=== PATIENT | female | born 1990 | race African-American/Black ===

== ENCOUNTER 2016-09-21 15:32 | Emergency (ER) | payer OTHER ==
[~2016-09-21] VITALS: Ht 157.5 cm; Wt 74.8 kg
[~2016-09-21 15:32] MED LIST: APAP500 PO; BACTRIM DS TAB1 EACH PO; CLARITIN10 M2 PO; DELSYM COUGH+C180 M1 PO; FLAGYL500 MG PO; FLEXERIL; FLEXERIL PO; HYDROCODON-ACE1 EAC7; HYDROCODONE-AP1 EAC6 PO; IBUPROFEN 200200 M1 PO; IBUPROFEN 600600 M1; IBUPROFEN 600600 M1 PO; IBUPROFEN 800800 M1; IBUPROFEN 800800 M1 PO; IBUPROFEN 800800 MG PO; MELOXICAM7.5 MG PO; MOBIC15 MG; MOBIC7.5 MG PO; NAPROSYN500 M1 PO; NORCO 5-325 TA1 EACH PO; NORFLEX100 MG PO; ONDANSETRON ODT4 MG PO; PENICILLIN V P500 MG PO; PENICILLIN VK500 M1 PO; PENICILLIN VK500 MG PO; PROCTOFOAM-HC 110 GM RC; REGLAN 10 MG TA10 MG PO; ROBAXIN 750 MG750 M1 PO; SUPHEDRIN30 MG PO; TESSALON PERLE100 MG PO
[2016-09-21 15:41] VITALS: BP 177/103
[2016-09-21] MEDS ORDERED: PENICILLIN V P500 MG PO (15:49)
[2016-09-21] MEDS ORDERED: IBUPROFEN 800800 M1 PO (15:49)
== END 2016-09-21 16:30 | disposition home or self-care (01) ==
LOC: ER 15:32
DX: K02.9 Dental caries, unspecified (principal); K04.01 Reversible pulpitis; Z88.6 Allergy status to analgesic agent; Z87.891 Personal history of nicotine dependence

== ENCOUNTER 2017-02-23 12:06 | Emergency (ER) | payer OTHER ==
[~2017-02-23] VITALS: Ht 157.5 cm; Wt 68.0 kg
[2017-02-23] MEDS ORDERED: MOBIC15 MG PO (12:21)
[2017-02-23] MEDS ORDERED: NORFLEX100 MG PO (12:21)
== END 2017-02-23 14:41 | disposition home or self-care (01) ==
LOC: ER 12:06
DX: S39.012A Strain of muscle, fascia and tendon of lower back, initial encounter (principal); Z87.891 Personal history of nicotine dependence; Z88.6 Allergy status to analgesic agent; X50.1XXA Overexertion from prolonged static or awkward postures, initial encounter; Y93.89 Activity, other specified; Y92.89 Other specified places as the place of occurrence of the external cause; Y99.8 Other external cause status

== ENCOUNTER 2017-10-02 21:32 | Emergency (ER) | payer OTHER ==
[~2017-10-02] VITALS: Ht 157.5 cm; Wt 70.3 kg
[~2017-10-02 21:32] MED LIST changes: +MOBIC15 MG PO
[2017-10-02 21:52] LABS: URINE BILIRUBIN NEGATIVE (Negative); URINE BLOOD 3+ (Negative); URINE CLARITY CLEAR; URINE COLOR YELLOW; URINE GLUCOSE-RANDOM* NEGATIVE (Negative); URINE KETONES NEGATIVE (Negative); URINE LEUKOCYTES-REFLEX 2+ (Negative); URINE NITRITE-REFLEX NEGATIVE (Negative); URINE PROTEIN (DIPSTICK) NEGATIVE (Negative); URINE UROBILINOGEN 0.2 E.U./dl (0.2-1.0)
[2017-10-02 22:30] VITALS: BP 148/94
[2017-10-02] MEDS ORDERED: NORCO 5-325 TA1 EACH PO (22:37)
[2017-10-02] MEDS ORDERED: KEFLEX500 M1 PO (22:37)
[2017-10-02] MEDS ORDERED: FLEXERIL PO (22:40)
[2017-10-02 22:45] LABS: CASTS None Seen /LPF (None Seen); CRYSTALS None Seen /LPF (None Seen); SQUAMOUS 4-10 Moderate /LPF (0-3); URINE RBC 3-10 Few /HPF (0-2); URINE WBC-REFLEX 6-15 Few /HPF (0-5)
== END 2017-10-02 22:45 | disposition home or self-care (01) ==
LOC: ER 21:32
PROVIDERS: Emergency Medicine
DX: M54.5 Low back pain (principal); N39.0 Urinary tract infection, site not specified; Z87.891 Personal history of nicotine dependence

== ENCOUNTER 2018-10-18 00:52 | Emergency (ER) | payer OTHER ==
[~2018-10-18] VITALS: Ht 157.5 cm; Wt 72.6 kg
[~2018-10-18 00:52] MED LIST changes: +KEFLEX500 M1 PO
[2018-10-18 00:55] VITALS: BP 146/92
[2018-10-18] MEDS ORDERED: MOBIC15 MG PO (01:52)
== END 2018-10-18 02:05 | disposition home or self-care (01) ==
LOC: ER 00:52
DX: S80.02XA Contusion of left knee, initial encounter (principal); S80.12XA Contusion of left lower leg, initial encounter; Z87.891 Personal history of nicotine dependence; Z88.6 Allergy status to analgesic agent; Z98.890 Other specified postprocedural states; W10.9XXA Fall (on) (from) unspecified stairs and steps, initial encounter; Y93.89 Activity, other specified; Y92.89 Other specified places as the place of occurrence of the external cause; Y99.8 Other external cause status

== ENCOUNTER 2020-05-30 23:07 | Emergency (ER) | payer OTHER ==
[~2020-05-30] VITALS: Ht 157.5 cm; Wt 68.0 kg
[2020-05-30] MEDS ORDERED: ONDANSETRON HCL4 M2 PO (23:12)
[2020-05-30] MEDS ORDERED: CARAFATE 1 GM TA1 G1 PO (23:12)
[2020-05-30] MEDS ORDERED: BENTYL 10 MG CA10 M1 PO (23:12)
[2020-05-30 23:36] LABS: ABSOLUTE NEUTROPHILS 10.1 thou/uL (1.4-8.2); BASOPHILS 0.3 % (0.0-2.0); HEMATOCRIT 45.2 % (37.0-47.0); HEMOGLOBIN 15.1 gm/dL (12.0-15.0); LYMPHOCYTES 9.4 % (24.0-44.0); MCHC 33.4 g/dL (28.0-37.0); MCV 92.9 fL (80.0-100.0); MONOCYTES 2.5 % (1.0-8.0); PLATELET COUNT 511 thou/uL (150-400); POLYS 87.8 % (36.0-66.0); RBC 4.87 mil/uL (4.20-5.00); WBC 11.5 thou/uL (4.0-11.0)
[2020-05-30 23:42] LABS: ANION GAP 15 mmol/L (7-16); BUN 20 mg/dL (7-18); CALCIUM 10.5 mg/dL (8.5-10.1); CHLORIDE 101 mmol/L (98-107); CO2 25 mmol/L (21-32); CREATININE 1.7 mg/dL (0.6-1.0); GLUCOSE 124 mg/dL (74-106); POTASSIUM 3.9 mmol/L (3.5-5.1); SODIUM 141 mmol/L (136-145)
[2020-05-30 23:47] LABS: ALBUMIN 4.7 g/dL (3.4-5.0); DIRECT BILIRUBIN < 0.1 mg/dL (<0.1-0.2); SGOT 25 U/L (15-37); SGPT 42 U/L (14-59); TOTAL BILIRUBIN 0.4 mg/dL (0.2-1.0); TOTAL PROTEIN 9.3 g/dL (6.4-8.2)
[2020-05-31 01:26] LABS: URINE BILIRUBIN 2+ (Negative); URINE BLOOD 1+ (Negative); URINE CLARITY SL CLOUDY; URINE COLOR YELLOW; URINE GLUCOSE-RANDOM* NEGATIVE (Negative); URINE KETONES NEGATIVE (Negative); URINE LEUKOCYTES-REFLEX NEGATIVE (Negative); URINE NITRITE-REFLEX NEGATIVE (Negative); URINE PROTEIN (DIPSTICK) 3+ (Negative); URINE SPECIFIC GRAVITY >= 1.030 (1.005-1.035); URINE UROBILINOGEN 0.2 E.U./dl (0.2-1.0)
[2020-05-31 01:51] LABS: BACTERIA-REFLEX 1-9 Few /HPF (None Seen); CRYSTALS None Seen /LPF (None Seen); HYALINE CASTS >10 Many /LPF (None Seen); MUCUS >6 Heavy strn/LPF (None Seen); SQUAMOUS 4-10 Moderate /LPF (0-3); URINE RBC 3-10 Few /HPF (0-2); URINE WBC-REFLEX 0-5 Rare /HPF (0-5)
[2020-05-31] MEDS ORDERED: FLAGYL500 M1 PO (03:14)
[2020-05-31] MEDS ORDERED: CIPROFLOXACIN500 M1 PO (03:14)
[2020-05-31] MEDS ORDERED: MOBIC15 MG PO (03:14)
[2020-05-31 03:29] VITALS: BP 136/75
== END 2020-05-31 03:38 | disposition home or self-care (01) ==
LOC: ER 23:07
PROVIDERS: Emergency Medicine
DX: K52.9 Noninfective gastroenteritis and colitis, unspecified (principal); E87.2 Acidosis; M79.604 Pain in right leg; M79.605 Pain in left leg; R11.2 Nausea with vomiting, unspecified; R07.89 Other chest pain; R43.8 Other disturbances of smell and taste; M54.9 Dorsalgia, unspecified; Z98.890 Other specified postprocedural states; Z79.899 Other long term (current) drug therapy; Z87.891 Personal history of nicotine dependence

== ENCOUNTER 2020-08-10 03:50 | Emergency (ER) | payer OTHER ==
[~2020-08-10] VITALS: Ht 157.5 cm; Wt 72.4 kg
[~2020-08-10 03:50] MED LIST changes: +BENTYL 10 MG CA10 M1 PO; +CARAFATE 1 GM TA1 G1 PO; +CIPROFLOXACIN500 M1 PO; +FLAGYL500 M1 PO; +ONDANSETRON HCL4 M2 PO
[2020-08-10] MEDS ORDERED: HYDROCODON-ACE1 EAC7 PO (04:00)
[2020-08-10 04:34] LABS: ANION GAP 12 mmol/L (7-16); BUN 12 mg/dL (7-18); CALCIUM 8.9 mg/dL (8.5-10.1); CHLORIDE 101 mmol/L (98-107); CO2 24 mmol/L (21-32); CREATININE 0.8 mg/dL (0.6-1.0); GLUCOSE 124 mg/dL (74-106); POTASSIUM 3.3 mmol/L (3.5-5.1); SODIUM 137 mmol/L (136-145)
[2020-08-10 04:41] LABS: BASOPHILS 0.6 % (0.0-2.0); EOSINOPHILS 2.7 % (0.0-3.0); HEMATOCRIT 38.7 % (37.0-47.0); HEMOGLOBIN 12.9 gm/dL (12.0-15.0); LYMPHOCYTES 42.1 % (24.0-44.0); MCH 31.2 pg (26.0-34.0); MCHC 33.3 g/dL (28.0-37.0); MCV 93.4 fL (80.0-100.0); MONOCYTES 9.3 % (1.0-8.0); PLATELET COUNT 287 thou/uL (150-400); POLYS 45.3 % (36.0-66.0); RBC 4.14 mil/uL (4.20-5.00); RDW 14.9 % (10.5-14.5); WBC 6.6 thou/uL (4.0-11.0)
[2020-08-10 04:45] LABS: ALBUMIN 3.8 g/dL (3.4-5.0); DIRECT BILIRUBIN 0.1 mg/dL (<0.1-0.2); LIPASE 64 U/L (73-393); SGOT 9 U/L (15-37); SGPT 15 U/L (30-65); TOTAL BILIRUBIN 0.2 mg/dL (0.2-1.0); TOTAL PROTEIN 7.5 g/dL (6.4-8.2); TROPONIN-I <0.06 ng/mL (<0.06)
[2020-08-10] MEDS ORDERED: ULTRAM 50MG TAB50 MG PO (05:10)
[2020-08-10] MEDS ORDERED: NORCO5 PO (05:21)
[2020-08-10 05:25] VITALS: BP 146/86
--- NOTE | 2020-08-10 07:13 | EKG ---
[address] [address] ELECTROCARDIOGRAM REPORT Name: CORTNEY [place] [id number] Admission: 08/10/20 Attend Phys: Discharge: 08/10/20 Date of : [birth year] Report #: [id number] [facility] ED Test Date: 2020-08-10 Test Time: 04:00:55 Pat Name: CORTNEY [place] Department: Room: Gender: F Yard[employer] Control Clerk: MAXIMO : 1990 Requested By: Mauricio Jones Order Number: [id number] MD: Zhang Barber Measurements Intervals [place] Rate: 83 P: 47 MO: 170 QRS: 13 QRSD: 92 T: 41 QT: 383 QTc: 450 Interpretive Statements Sinus rhythm Left atrial enlargement No previous ECG available for comparison Electronically Signed On 08-10-2020 7:13:20 CDT by Zhang Barber [email or web address] <ELECTRONICALLY SIGNED> By: Zhang Barber MD, [facility] 08/10/20 0713 040 0400 Zhang Barber MD, FACC /EPI
== END 2020-08-10 05:25 | disposition home or self-care (01) ==
LOC: ER 03:50
PROVIDERS: Emergency Medicine
DX: I10 Essential (primary) hypertension (principal); R07.89 Other chest pain; R20.0 Anesthesia of skin; F43.9 Reaction to severe stress, unspecified; E66.9 Obesity, unspecified; Z98.51 Tubal ligation status; Z98.890 Other specified postprocedural states; Z68.29 Body mass index [BMI] 29.0-29.9, adult; Z79.899 Other long term (current) drug therapy; Z87.891 Personal history of nicotine dependence

== ENCOUNTER 2020-09-18 20:48 | Emergency (ER) | payer OTHER ==
[~2020-09-18] VITALS: Ht 157.5 cm; Wt 70.3 kg
[~2020-09-18 20:48] MED LIST changes: +HYDROCODON-ACE1 EAC7 PO; +NORCO5 PO; +ULTRAM 50MG TAB50 MG PO
[2020-09-18 21:21] LABS: ABSOLUTE NEUTROPHILS 4.7 thou/uL (1.4-8.2); BASOPHILS 0.7 % (0.0-2.0); EOSINOPHILS 2.6 % (0.0-3.0); HEMATOCRIT 42.1 % (37.0-47.0); HEMOGLOBIN 13.7 gm/dL (12.0-15.0); MCH 30.8 pg (26.0-34.0); MCHC 32.6 g/dL (28.0-37.0); MCV 94.4 fL (80.0-100.0); MONOCYTES 6.5 % (1.0-8.0); PLATELET COUNT 381 thou/uL (150-400); POLYS 47.2 % (36.0-66.0); RBC 4.46 mil/uL (4.20-5.00); RDW 15.5 % (10.5-14.5)
[2020-09-18 21:46] LABS: ANION GAP 13 mmol/L (7-16); BUN 8 mg/dL (7-18); CALCIUM 9.1 mg/dL (8.5-10.1); CHLORIDE 104 mmol/L (98-107); CO2 23 mmol/L (21-32); CREATININE 0.9 mg/dL (0.6-1.0); GLUCOSE 141 mg/dL (74-106); POTASSIUM 3.2 mmol/L (3.5-5.1); SODIUM 140 mmol/L (136-145)
[2020-09-18 21:50] LABS: ALBUMIN 4.3 g/dL (3.4-5.0); DIRECT BILIRUBIN < 0.1 mg/dL (<0.1-0.2); MAGNESIUM 1.8 mg/dL (1.8-2.4); PHOSPHORUS 2.7 mg/dL (2.6-4.7); SALICYLATE 5.6 mg/dL (2.8-20.0); SGOT 15 U/L (15-37); SGPT 24 U/L (14-59); TOTAL BILIRUBIN 0.2 mg/dL (0.2-1.0); TOTAL PROTEIN 8.4 g/dL (6.4-8.2); TROPONIN-I <0.06 ng/mL (<0.06)
[2020-09-18 23:12] LABS: URINE BILIRUBIN NEGATIVE (Negative); URINE BLOOD 1+ (Negative); URINE CLARITY CLEAR; URINE COLOR YELLOW; URINE GLUCOSE-RANDOM* NEGATIVE (Negative); URINE KETONES NEGATIVE (Negative); URINE LEUKOCYTES-REFLEX NEGATIVE (Negative); URINE NITRITE-REFLEX NEGATIVE (Negative); URINE PROTEIN (DIPSTICK) NEGATIVE (Negative); URINE UROBILINOGEN 0.2 E.U./dl (0.2-1.0)
[2020-09-18 23:21] LABS: BACTERIA-REFLEX 1-9 Few /HPF (None Seen); CRYSTALS None Seen /LPF (None Seen); HYALINE CASTS 0-3 Few /LPF (None Seen); MUCUS 0-3 Light strn/LPF (None Seen); SQUAMOUS 4-10 Moderate /LPF (0-3); URINE RBC 3-10 Few /HPF (NONE SEEN); URINE WBC-REFLEX 0-5 Rare /HPF (0-5)
[2020-09-18 23:22] LABS: AMP/METHAMP Negative (Negative); BARBITURATES Negative (Negative); BENZODIAZEPINES Negative (Negative); COCAINE Negative (Negative); METHADONE Negative (Negative); OPIATES POSITIVE (Negative); PCP Negative (Negative)
[2020-09-18 23:52] VITALS: BP 148/75
--- NOTE | 2020-09-19 08:44 | EKG ---
[address] [address] [facility] [place] [address] ELECTROCARDIOGRAM REPORT Name: CORTNEY [place] Room #: [facility]#: [id number] Admission: 09/18/20 Attend Phys: Discharge: 09/18/20 Date of : [birth year] Report #: [id number] [facility] ED Test Date: 2020-09-18 Test Time: 21:49:00 Pat Name: CORTNEY [place] Department: Room: Gender: F Marketing Outreach Coordinator: CARLIN : 1990 Requested By: Mauricio Jones Order Number: [id number] MD: Zhang Barber Measurements Intervals [place] Rate: 97 P: 48 WI: 183 QRS: 9 QRSD: 90 T: 30 QT: 359 QTc: 456 Interpretive Statements Sinus rhythm Probable left atrial enlargement Compared to ECG 08/10/2020 04:00:55 No significant changes Electronically Signed On 09-19-2020 8:44:30 CDT by Zhang Barber [email or web address] <ELECTRONICALLY SIGNED> By: Zhang Barber MD, [facility] 09/19/20 0844 2149 2149 Zhang Barber MD, FACC /EPI
== END 2020-09-18 23:53 | disposition home or self-care (01) ==
LOC: ER 20:48
PROVIDERS: Emergency Medicine; Physician Assistant
DX: T39.1X1A Poisoning by 4-Aminophenol derivatives, accidental (unintentional), initial encounter (principal); F41.9 Anxiety disorder, unspecified; R00.2 Palpitations; G43.909 Migraine, unspecified, not intractable, without status migrainosus; I10 Essential (primary) hypertension; F17.210 Nicotine dependence, cigarettes, uncomplicated; Z79.899 Other long term (current) drug therapy; Z88.6 Allergy status to analgesic agent; Z88.8 Allergy status to other drugs, medicaments and biological substances; Y92.89 Other specified places as the place of occurrence of the external cause

== ENCOUNTER 2020-10-21 19:57 | Emergency (ER) | payer OTHER ==
[~2020-10-21] VITALS: Ht 157.5 cm; Wt 68.0 kg
[2020-10-21 20:40] LABS: HEMOGLOBIN 12.6 gm/dL (12.0-15.0); WBC 5.6 thou/uL (4.0-11.0)
[2020-10-21 20:42] LABS: ABSOLUTE NEUTROPHILS 2.1 thou/uL (1.4-8.2); BASOPHILS 1.4 % (0.0-2.0); EOSINOPHILS 4.6 % (0.0-3.0); HEMATOCRIT 37.5 % (37.0-47.0); LYMPHOCYTES 46.5 % (24.0-44.0); MCH 31.8 pg (26.0-34.0); MCHC 33.7 g/dL (28.0-37.0); MCV 94.4 fL (80.0-100.0); MONOCYTES 8.9 % (1.0-8.0); PLATELET COUNT 299 thou/uL (150-400); POLYS 38.6 % (36.0-66.0); RBC 3.97 mil/uL (4.20-5.00); RDW 14.4 % (10.5-14.5)
[2020-10-21] MEDS ORDERED: METHOCARBAMOL500 M2 PO ×2 (20:48→20:49)
[2020-10-21 20:50] LABS: ANION GAP 10 mmol/L (7-16); BUN 10 mg/dL (7-18); CALCIUM 8.6 mg/dL (8.5-10.1); CHLORIDE 107 mmol/L (98-107); CO2 24 mmol/L (21-32); CREATININE 0.9 mg/dL (0.6-1.0); GLUCOSE 93 mg/dL (74-106); POTASSIUM 3.7 mmol/L (3.5-5.1); SODIUM 141 mmol/L (136-145)
[2020-10-21 20:57] LABS: ALBUMIN 3.8 g/dL (3.4-5.0); SGOT 11 U/L (15-37); SGPT 20 U/L (14-59); TOTAL BILIRUBIN 0.2 mg/dL (0.2-1.0); TOTAL PROTEIN 7.4 g/dL (6.4-8.2); TROPONIN-I <0.06 ng/mL (<0.06)
[2020-10-21] MEDS ORDERED: OMEPRAZOLE40 MG PO (21:36)
[2020-10-21 22:15] VITALS: BP 157/99
--- NOTE | 2020-10-23 07:21 | EKG ---
[address] [address] [facility] [address] ELECTROCARDIOGRAM REPORT Name: CORTNEY [place] Room #: [facility]#: [id number] Admission: 10/21/20 Attend Phys: Discharge: 10/21/20 Date of : [birth year] Report #: [id number] [facility] ED Test Date: 2020-10-21 Test Time: 20:02:48 Pat Name: CORTNEY [place] Department: Room: Gender: F Clinical Mental Health Counselor: marquis : 1990 Requested By: Curry Kay Order Number: [id number] MD: Zhang Barber Measurements Intervals [place] Rate: 73 P: 61 IA: 162 QRS: 25 QRSD: 99 T: 48 QT: 407 QTc: 449 Interpretive Statements Sinus arrhythmia Probable left atrial enlargement Compared to ECG 09/18/2020 21:49:00 Sinus rhythm no longer present Electronically Signed On 10-23-2020 7:21:41 CDT by Zhang Barber [email or web address] <ELECTRONICALLY SIGNED> By: Zhang Barber MD, [facility] 10/23/20 0721 01 01 Zhang Barber MD, FACC /EPI
== END 2020-10-21 22:17 | disposition home or self-care (01) ==
LOC: ER 19:57
PROVIDERS: Physician Assistant
DX: R07.89 Other chest pain (principal); R63.0 Anorexia; R06.02 Shortness of breath; G43.909 Migraine, unspecified, not intractable, without status migrainosus; Z88.6 Allergy status to analgesic agent; Z87.891 Personal history of nicotine dependence; Z98.890 Other specified postprocedural states